=== PATIENT | female | born 1985 | race Caucasian/White ===

== ENCOUNTER → 2020-06-04 07:57 | Outpatient (BNVA) | payer OTHER, SELFPAY | PROVIDERS: PCP Internal Medicine Endocrinology, Diabetes & Metabolism; Visit Provider Surgery ==

== ENCOUNTER → 2020-06-28 08:23 | Outpatient (BNVA) | payer OTHER, SELFPAY | PROVIDERS: PCP Internal Medicine Endocrinology, Diabetes & Metabolism; Visit Provider Surgery ==

== ENCOUNTER → 2020-07-05 08:10 | Outpatient (BNVA) | payer OTHER, SELFPAY | PROVIDERS: PCP Internal Medicine Endocrinology, Diabetes & Metabolism; Visit Provider Dietitian, Registered ==

== ENCOUNTER → 2020-07-16 13:36 | Outpatient (BNVA) | payer OTHER, SELFPAY | PROVIDERS: PCP Internal Medicine Endocrinology, Diabetes & Metabolism; Visit Provider Dietitian, Registered ==

== ENCOUNTER 2021-04-25 13:14 | Emergency (ER) | payer OTHER, SELFPAY ==
--- NOTE | 2021-04-25 19:33 | ED_ITS ---
HPI - General Adult General Chief complaint: Upper Respiratory Symptoms Stated complaint: Ear pain/body pain Time Seen by Provider: 04/25/21 16:55 Source: patient Mode of arrival: ambulatory Limitations: no limitations History of Present Illness HPI narrative: 36 yold female presents to the ED for bilateral ear pain with bodyaches. patient states exposed to daughter who was positive for covid. Related Data Home Medications Medication Instructions Recorded Confirmed No Known Home Meds 06/03/20 06/03/20 Allergies Allergy/AdvReac Type Severity Reaction Status Date / Time No Known Allergies Allergy Unverified 06/04/20 08:11 [No Known Allergies*] Review of Systems Review of Systems: Yes all other systems are reviewed and are negative Constitutional: Constitutional: Reports as per HPI, Reports no additional constitutional complaints and Reports body ache(s) Eyes: Eyes: Reports as per HPI and Reports no additional eye complaints ENT: Reports system reviewed and no additional complaints, except as documented, Reports as per HPI and Reports otalgia Cardiovascular: Cardiovascular: Reports as per HPI and Reports no additional cardiovascular complaints Respiratory: Respiratory: Reports as per HPI and Reports no additional respiratory complaints Gastrointestinal: Gastrointestinal: Reports as per HPI and Reports no additio nal gastrointestinal complaints Musculoskeletal: Musculoskeletal: Reports no additional musculoskeletal complaints and Reports as per HPI Integumentary/Breasts: Skin/Breast: Reports system reviewed and no additional complaints, except as docu and Reports as per HPI Neurologic: Reports system reviewed and no additional complaints, except as documented and Reports as per HPI Psychiatric: Psychiatric: Reports no additional psychiatric complaints and Reports as per HPI PMFSH Past Medical History Medical History Anxiety DJD (degenerative joint disease) Herniated intervertebral disc Obesity Scoliosis Surgical History No significant past surgical history Family History Family History Mother No problems noted. Father No problems noted. Brother No problems noted. Daughter No problems noted. Daughter No problems noted. Social History Social History Alcohol intake: never Advance Directives: No Advance Directives Information Provided: No Patient : No Physical Exam Vital Signs: Vital Signs: Last Vital Signs Temp 98.2 F 04/25/21 19:41 Pulse 109 H 04/25/21 19:41 Resp 20 04/25/21 19:41 BP 144/93 H 04/25/21 19:41 Pulse Ox 99 04/25/21 19:41 BMI result Body Mass Index 35.5 Const: General: cooperative, healthy appearing, comfortable, no acute distress, well developed, alert, awake and Physically active Orientation/consciousness: patient oriented x3 HENMT: Head: Yes normal to inspection, Yes No palpable skull fracture present, Yes normocephalic, Yes atraumatic and No abrasion Ears: hearing grossly normal bilaterally, external ears normal, TM's normal bilaterally, EAC's normal, mastoids normal and no periauricular adenopathy Eyes: General: appearance normal, both eyes and all related structures Neck: Neck: Yes normal visual inspection, Yes full ROM, Yes no lymphadenopathy, Yes no meningeal signs, Yes trachea midline, Yes supple, No anterior neck swelling and No tender Chest: Chest palpation & inspection: normal inspection of the chest and normal palpation of entire chest wall Resp: Effort & Inspection: normal respiratory effort and able to speak in complete sentences Auscultation: clear to auscultation bilaterally Cardio: Jugular venous distension: no JVD Heart sounds: S1 normal heart sound present and S2 normal heart sound present GI: Inspection: Yes normal to inspection and No abdominal wall ecchymosis Palpation (GI): Soft to palpation, not firm, nontender, no guarding and not rigid : General: No CVA tenderness and Yes no CVA tenderness Back/Spine/Pelvis: Back: no CVA tenderness, No CVA tenderness and No back tenderness Skin: General skin exam: no rashes or lesions noted and elasticity normal Neuro: General: patient oriented x3, gait normal, tone normal, no meningeal signs and CN's II-XI intact bilaterally Cranial nerves: Yes CN's II-XII intact bilaterally Extrem: General: Yes normal to inspection and Yes full ROM Psych: Appearance: grossly normal, well kempt and not disheveled Course Course Course Narrative: Patient tested for covid and strep Reevaluation(s) Reevaluation #1: Covid positive. Educated on signs of respiratory distress Medical Decision Making Lab Data Labs: Lab Results 04/25/21 04/25/21 Range/Units 19:30 19:30 COVID-19 (OTTO) Positive A (Negative) COVID-19 Clin Com See Note S. pyogenes GrpA CHRIST Negative (Negative) Discharge Plan Discharge Clinical Impression: COVID-19 Patient Disposition: Home, Self-Care Instructions: COVID-19 (Coronavirus Disease 2019) (ED) Additional Instructions: Came back positive for COVID-19 virus. Recommend alternate self-isolation. Return to ED for any chest pain shortness of breath, weakness, dizziness, or any other concerning symptoms. Please follow-up with care provider Prescriptions: No Action No Known Home Meds RF: 0 Stand Alone Forms: Work/School Release Interventions: ED Discharge Assessment Last Done: 04/25/21 20:45 Discharge Date/Time: 04/25/21 20:54 Print Language: Portuguese
[2021-04-25 19:41] VITALS: BP 144/93; PULSE 109; RESP 20; TEMP 36.8; O2SAT 99; BMI 35.5
[2021-04-25 19:53] LABS: IDNOW Serial# 55D5AD1C; Strep A Nucleic Acid Negative (Negative)
[2021-04-25 20:04] LABS: COVID-19 Test Positive (Negative); IDNOW Serial# 08D9AD1C
== END 2021-04-25 20:54 | disposition home or self-care (01) ==
PROVIDERS: Physician Assistant; Emergency Provider Emergency Medicine
DX: U07.1 COVID-19 (principal)
CPT/HCPCS: 36415; 87635; 87651; 99283

== ENCOUNTER → 2022-02-02 14:40 | Outpatient (BNVA) | payer OTHER, SELFPAY | PROVIDERS: Visit Provider Student in an Organized Health Care Education/Training Program | DX: M79.7 Fibromyalgia (principal) | CPT/HCPCS: 99202 ==

== ENCOUNTER → 2022-06-27 12:45 | Outpatient (BNVA) | payer OTHER, SELFPAY | PROVIDERS: Visit Provider Physician Assistant Surgical | DX: Z13.89 Encounter for screening for other disorder (principal) ==

== ENCOUNTER → 2022-07-05 09:06 | Outpatient (BNVA) | payer OTHER, SELFPAY | PROVIDERS: Visit Provider Surgery | DX: Z13.89 Encounter for screening for other disorder (principal) ==

== ENCOUNTER 2022-07-11 13:43 | Outpatient (REF) | payer OTHER, SELFPAY ==
--- NOTE | ~2022-07-11 | XR_ITS ---
EXAMINATION: XR CHEST CLINICAL INFORMATION: Morbid obesity COMPARISON: None available. TECHNIQUE: 2 views of the chest were obtained. FINDINGS: The lungs are well-expanded and clear. The heart size and pulmonary vascularity is normal. There is moderate dextroscoliosis dorsal spine. No gross lytic process seen. XR/XR chest 2V IMPRESSION: Moderate dextroscoliosis dorsal spine. No acute process seen.
--- NOTE | 2022-07-11 13:48 | ECG_ITS ---
Test Reason : e66.01 Blood Pressure : / mmHG Vent. Rate : 068 BPM Atrial Rate : 068 BPM P-R Int : 132 ms QRS Dur : 086 ms QT Int : 386 ms P-R-T Axes : 002 040 047 degrees QTc Int : 410 ms Normal sinus rhythm Normal ECG No previous ECGs available Referred By: Bucky Crowell Electronically Signed By:Rigoberto Orozco
[2022-07-11 14:40] LABS: Basophils Percent Auto 0.4 % (0-2); Eosinophils Absolute Auto 0.1 X10*3/uL (0.0-0.4); Hematocrit 41.4 % (37.0-47.0); Hemoglobin 14.1 g/dl (12.0-16.0); Imm Gran Abs Auto 0.01 X10*3/uL (0.00-0.03); Imm Gran Pct Auto 0.1 % (0.0-0.4); Lymphocytes Absolute Auto 2.2 X10*3/uL (1.2-4.9); Lymphocytes Percent Auto 30.7 % (20-40); MANUAL DIFF FLAG NO; Mean Corpuscular HGB Conc 34.1 g/dl (31.0-35.0); Mean Corpuscular Hemoglobin 31.1 pg (27.0-33.0); Mean Corpuscular Volume 91.2 fL (80.0-98.0); Mean Platelet Volume 9.7 fL (9.4-12.3); Monocytes Absolute Auto 0.6 X10*3/uL (0.1-1.2); Neutrophils Absolute Auto 4.3 x10*3/uL (2.0-8.3); Neutrophils Percent Auto 59.8 % (45-73); Platelet Count 239 X10*3/uL (160-400); Red Blood Count 4.54 X10*6/uL (4.20-5.50); Red Cell Distribution Width 13.1 % (11.0-16.0); White Blood Count 7.1 X10*3/uL (4.8-10.8)
[2022-07-11 15:10] LABS: Alanine Aminotransferase 17 U/L (0-31); Albumin Level 4.4 g/dL (3.5-5.0); Alkaline Phosphatase 70 U/L (39-117); Anion Gap 12 (12-20); Aspartate Amino Transferase 17 U/L (5-31); Bilirubin Total 0.7 mg/dL (0.0-1.0); Blood Urea Nitrogen 10 mg/dL (9-16); C Reactive Protein 0.51 mg/dL (< or = 0.50); Calcium 8.7 mg/dL (8.4-10.2); Carbon Dioxide 25 mmol/L (22-29); Chloride 107 mmol/L (96-108); Cholesterol 255 mg/dL; Estimated Glomerular Filt Rate > 60; Glucose Random 88 mg/dL (60-115); HDL Cholesterol 41 mg/dL; Iron 99 mcg/dL (30-160); LDL Cholesterol Calculated 175 mg/dl; Percent Iron Saturation 34 % (15-50); Potassium 4.1 mmol/L (3.3-5.1); Sodium 140 mmol/L (135-145); Total Iron Binding Capacity 294 mcg/dL (228-428); Total Protein 7.2 g/dL (6.5-8.0); Triglycerides 197 mg/dL; Unsaturated Iron Binding 195 ug/dL
[2022-07-11 15:11] LABS: Estimated Average Glucose 105 mg/dL; Hemoglobin A1c % 5.3 %
[2022-07-11 15:47] LABS: Insulin 9 uU/mL (2-29)
[2022-07-11 15:53] LABS: Ferritin 132 ng/mL (10-122); Folate 13.4 ng/mL (> or = 4.0); TSH reflex Free T4 1.84 uIU/mL (0.32-4.0); Vitamin B12 267 pg/mL (200-900); Vitamin D 25-OH Total 8.7 ng/mL (>30)
[2022-07-12 17:49] LABS: PTHI 61 pg/mL (16-77)
[2022-07-14 00:23] LABS: Zinc 72 mcg/dL (60-130)
[2022-07-14 12:55] LABS: Vitamin B1 12 nmol/L (8-30)
== END 2022-07-11 13:44 | disposition home or self-care (01) ==
LOC: HO.LAB 13:43
PROVIDERS: Visit Provider Surgery
DX: E66.01 Morbid (severe) obesity due to excess calories (principal)
CPT/HCPCS: 36415; 71046; 80053; 80061; 82306; 82607; 82728; 82746; 83036; 83525; 83540; 83970; 84425; 84443; 84590; 84630; 85025; 86140; 93005

== ENCOUNTER → 2022-07-13 13:12 | Outpatient (BNVA) | payer OTHER, SELFPAY | PROVIDERS: PCP Internal Medicine; Visit Provider Physician Assistant Surgical | DX: Z11.0 Encounter for screening for intestinal infectious diseases (principal) | CPT/HCPCS: 99211 ==

== ENCOUNTER 2022-07-13 13:44 | Outpatient (REF) | payer OTHER, SELFPAY ==
[2022-07-15 12:17] LABS: H Pylori Breath Test Negative (Negative)
== END 2022-07-13 13:45 | disposition home or self-care (01) ==
LOC: HO.LNP 13:44
PROVIDERS: Visit Provider Surgery
DX: E66.01 Morbid (severe) obesity due to excess calories (principal); Z11.0 Encounter for screening for intestinal infectious diseases
CPT/HCPCS: 83013

== ENCOUNTER → 2022-07-18 11:00 | Outpatient (BNVA) | payer OTHER, SELFPAY | PROVIDERS: PCP Internal Medicine; Visit Provider Counselor Mental Health ==

== ENCOUNTER → 2022-07-27 11:28 | Outpatient (BNVA) | payer OTHER, SELFPAY | PROVIDERS: Visit Provider Dietitian, Registered | DX: E66.01 Morbid (severe) obesity due to excess calories (principal) | CPT/HCPCS: 97802 ==

== ENCOUNTER → 2022-08-01 10:01 | Outpatient (BNVA) | payer OTHER, SELFPAY | PROVIDERS: PCP Internal Medicine; Visit Provider Counselor Mental Health ==

== ENCOUNTER 2022-08-04 08:01 | Outpatient (REF) | payer OTHER, SELFPAY ==
--- NOTE | ~2022-08-04 | XR_ITS ---
EXAMINATION: XR KNEE, LEFT CLINICAL INFORMATION: Unspecified osteoarthritis COMPARISON: None available. TECHNIQUE: Two views of the left knee. FINDINGS: The tricompartment joint space is preserved. No visible acute fracture, dislocation or loose body seen. No bony erosive changes. The soft tissues are normal. XR/XR knee LT 2V IMPRESSION: Unremarkable left knee exam.
== END 2022-08-04 08:02 | disposition home or self-care (01) ==
LOC: HO.XRAY 08:01
PROVIDERS: Visit Provider Surgery
DX: M17.12 Unilateral primary osteoarthritis, left knee (principal); E66.01 Morbid (severe) obesity due to excess calories
CPT/HCPCS: 73560

== ENCOUNTER → 2022-09-06 11:42 | Outpatient (BNVA) | payer OTHER, SELFPAY | PROVIDERS: Visit Provider Dietitian, Registered | DX: E66.01 Morbid (severe) obesity due to excess calories (principal); Z68.41 Body mass index [BMI] 40.0-44.9, adult | CPT/HCPCS: 97803 ==

== ENCOUNTER 2022-09-12 08:31 | Outpatient (REF) | payer OTHER, SELFPAY ==
--- NOTE | ~2022-09-12 | US_ITS ---
EXAMINATION: US COMPLETE ABDOMEN WITH LIVER ELASTOGRAPHY CLINICAL INFORMATION: Obesity. COMPARISON: None available. TECHNIQUE: Real-time imaging of the abdominal viscera. Noninvasive ultrasound liver fibrosis assessment is performed using Nancy ElastPQ point quantification shear wave elastography (2D-SWE) with a C5-2 MHz transducer. Multiple elastography samples are obtained. Imaging is limited by body habitus and respiratory motion. FINDINGS: PANCREAS: Normal. The visualized pancreatic head and body are normal in appearance. The remainder of the pancreas is obscured from visualization by the overlying bowel gas. ABDOMINAL AORTA: The proximal, middle, and distal aortic segments are normal in caliber. INFERIOR VENA CAVA: Visualized portions are normal. LIVER: Normal. The liver demonstrates normal size, contour and increased echogenicity. No focal lesion or intrahepatic biliary duct dilatation. The right lobe measures 15.8 cm in length. The left lobe measures 12.1 cm in length. Portal flow is towards the liver (hepatopetal). Shear wave liver elastography median stiffness is 1.72 m/s (reference: normal median stiffness is 1.3 m/s or less). IQR/median stiffness to assess sampling precision is 0.43 (reference: good quality data set is IQR/median stiffness of 0.15 or less). GALLBLADDER: Normal. The gallbladder is physiologically distended without evidence of stones, sludge, polyps, wall thickening or pericholecystic fluid. COMMON BILE DUCT: Normal in caliber measuring 0.3 cm in diameter. RIGHT KIDNEY: Normal. No hydronephrosis. No renal calculi or focal parenchymal lesions. The kidney measures 11.3 cm in maximum dimension. LEFT KIDNEY: Normal. No hydronephrosis. No renal calculi or focal parenchymal lesions. The kidney measures 11.9 cm in maximum dimension. SPLEEN: Normal. The spleen measures 11.0 cm in maximum dimension. FREE FLUID: None. US/US abdomen comp w elastography IMPRESSION: 1. There is generalized increase in hepatic echotexture, consistent with fatty infiltration or hepatocellular disease. Please correlate clinically. No focal hepatic mass or intrahepatic biliary dilatation is seen. 2. Liver elastography: Although measurements are suggestive of compensated advanced chronic liver disease, there is statistical variability of the sampling which decreases accuracy. REFERENCE: Society of [employer]iologists in Ultrasound Liver Stiffness Thresholds (2020): LIVER STIFFNESS THRESHOLDS: *Liver Stiffness equal or less than 1.3 m/s: High probability of being normal. *Liver Stiffness less than 1.7 m/s: In the absence of other known clinical signs, rules out compensated advanced chronic liver disease. *Liver Stiffness 1.7-2.1 m/s: Suggestive of compensated advanced chronic liver disease but need further test for confirmation. *Liver Stiffness over 2.1 m/s: Rules in compensated advanced chronic liver disease. *Liver Stiffness over 2.4 m/s: Suggestive of clinically significant portal hypertension. QUALITY OF DATA SET: *IQR/Median value equal or less than 0.15 implies a quality data set. *IQR/Median value over 0.15 implies a poor quality data set. SIGNIFICANT CHANGE FROM PRIOR EXAM: Significant change if liver stiffness measurement is 10% or greater from prior exam. OTHER CONSIDERATIONS: The stage of liver fibrosis may be overestimated in the setting of acute hepatitis, liver inflammation, elevated liver function tests, hepatic vascular congestion, obstructive cholestasis, non-fasting state, and infiltrative diseases such as amyloidosis and lymphoma. In some patients with NAFLD, the liver stiffness thresholds for compensated advanced chronic liver disease may be lower. In causes other than viral hepatitis and NAFLD, liver stiffness thresholds are not well established.
== END 2022-09-12 08:32 | disposition home or self-care (01) ==
LOC: HO.US 08:31
PROVIDERS: Visit Provider Surgery
DX: Z01.818 Encounter for other preprocedural examination (principal); E66.01 Morbid (severe) obesity due to excess calories; K21.9 Gastro-esophageal reflux disease without esophagitis
CPT/HCPCS: 76705; 76981

== ENCOUNTER → 2022-09-13 10:30 | Outpatient (BNVA) | payer OTHER, SELFPAY | PROVIDERS: Visit Provider Counselor Mental Health ==

== ENCOUNTER → 2022-09-20 13:26 | Outpatient (BNVA) | payer OTHER, SELFPAY | PROVIDERS: Visit Provider Physician Assistant Surgical | DX: E66.01 Morbid (severe) obesity due to excess calories (principal); Z68.41 Body mass index [BMI] 40.0-44.9, adult | CPT/HCPCS: 99212 ==

== ENCOUNTER 2022-10-03 08:55 | Outpatient (REF) | payer OTHER, SELFPAY ==
--- NOTE | ~2022-10-03 | FL_ITS ---
EXAMINATION: XR FLUOROSCOPY UPPER GI WITH AIR CLINICAL INFORMATION: Obesity COMPARISON: None available. TECHNIQUE: Upper GI was performed using thin and thick barium and effervescent granules FINDINGS: Esophageal motility is normal. No hernia. Gastroesophageal reflux. The stomach and duodenum are normal-appearing. No fold thickening, mass, ulcer or stricture. FLUOROSCOPY TIME: 0.5 minutes DOSE AREA PRODUCT: 6 samano per centimeter squared. Total dose 23 mgy. 17 saved fluoroscopic images and 3 overhead images. FL/FL upper GI w air IMPRESSION: Gastroesophageal reflux.
== END 2022-10-03 08:56 | disposition home or self-care (01) ==
LOC: HO.XRAY 08:55
PROVIDERS: Visit Provider Surgery
DX: E66.01 Morbid (severe) obesity due to excess calories (principal)
CPT/HCPCS: 74246

== ENCOUNTER → 2022-11-03 10:17 | Outpatient (BNVA) | payer OTHER, SELFPAY | PROVIDERS: Visit Provider Physician Assistant Surgical | DX: E66.9 Obesity, unspecified (principal); Z68.41 Body mass index [BMI] 40.0-44.9, adult | CPT/HCPCS: 99212 ==